=== PATIENT | male | born 1965 | race Caucasian/White ===

== ENCOUNTER 2018-12-10 08:58 | Outpatient (CLI) | payer MEDICARE, SELFPAY ==
[2018-12-10 11:18] LABS: Hemoglobin A1C 6.6 % (4.5-6.2)
[2018-12-10 12:24] LABS: ALT 137 U/L (12-78); AST 97 U/L (15-37); Albumin 3.5 g/dL (3.4-5.0); Alkaline Phosphatase 126 U/L (46-116); Anion Gap 10.1 mmol/L (3-11); BUN 15 mg/dL (7-18); Bilirubin, Total 0.7 mg/dL (0.2-1.0); CO2 28.9 mmol/L (21.0-32.0); CREATININE 0.93 mg/dL (0.70-1.30); Calcium 9.5 mg/dL (8.5-10.1); Chloride 99 mmol/L (98-107); GGT 161 U/L (15-85); Glucose 128 mg/dL (70-100); Potassium 4.6 mmol/L (3.5-5.1); Sodium 138 mmol/L (136-145); Total Protein 8.1 g/dL (6.4-8.2)
== END 2018-12-10 09:18 ==
PROVIDERS: PCP Emergency Medicine; Visit Provider Emergency Medicine
DX: E11.9 Type 2 diabetes mellitus without complications (principal); R89.9 Unspecified abnormal finding in specimens from other organs, systems and tissues
CPT/HCPCS: 36415; 80053; 82977; 83036

== ENCOUNTER 2019-04-18 12:19 | Inpatient (IN) | payer MEDICARE, SELFPAY ==
[2019-04-18] VITALS (15 sets, daily range): BP systolic 116–144; BP diastolic 69–77; PULSE 77–128; RESP 14–25; TEMP 36.8–37.8; O2SAT 87–98
--- NOTE | 2019-04-18 12:40 | W.ED.GENAD ---
Discharge Plan Disposition Condition: Improving Discharge Details Chief Complaint: Diabetes Admit Date/Time: 04/18/19 14:55 Admit Provider: Sariah Padgett Attending Provider: Sariah Padgett Primary Care Provider: Blair Baum ED Provider: Lashaun Lezama Discharge Instructions Activity:: Activity as Tolerated Equipment/Supplies:: Blood Glucose Monitor Diet:: Carb Counting Discharge Orders Discharge Orders: Discharge Order (Routine); Ordered 04/21/19 Ordered By: Nadia Yeager Discharge Data Discharge Date/Time-TO BE ENTERED AT DEPARTURE: 04/18/19 15:07 Medical Decision Making Patient is a 53-year-old male presents with chief complaint of polyuria and polydipsia for the past few months. He was noted to have a elevated glucose by his primary care who advised he come here for evaluation. He denies feeling acutely unwell. On exam, patient is resting comfortably. He does have a elevated pulse of 128. Reports feeling dehydrated. We will begin with IV hydration. BGL 504 at this time. Plan for hydration, laboratory evaluation. Discussed the plan with the patient was in agreement. Labs reviewed. No leukocytosis. Sodium slightly low 133. Potassium is normal. Has an anion gap of 12.5. Bicarb is normal. BUN 23. Creatinine 1.5. Is not been elevated like this historically. Glucose is 530. AST and ALT are both elevated. Troponin is less than 0.05. TSH within normal limits as is free T4. Patient does have trace ketones in his urine but does not have evidence of diabetic ketoacidosis. Discussed the case with Dr. Discussed medical management. As the patient has an acute kidney injury, I am unable to begin him on metformin. She feels admission is appropriate to begin him on insulin regimen. Discussed the plan with the patient is in agreement. Patient admitted to medical surgical unit. HPI General Mode of arrival: ambulatory. Date/Time Provider Initiated Documentation: 04/18/19 12:40. Limitations to Documentation: no limitations. Information obtained by: patient and RN notes reviewed. HPI Narrative: Patient is a 53-year-old male presenting today at the advisement of his care. He reports that he went to his primary care for evaluation of polyuria and polydipsia. He reports that he has been followed by his primary care for his blood pressure, cholesterol and weight gain. States that over the past 2 months he has been able to lose approximately 30 pounds. Reports he is done so by decreasing caloric intake. Reports that he is not difficult for him to drop by to evaluate like this and he is not surprised by this number. However, when he went to be evaluated by his primary care a glucose was checked and the patient was noted to have a blood sugar over 450. His primary care advised that he go to the emergency department for evaluation. He is not currently having any physical complaints. Reports that he is feeling quite well. Denies any visual changes. No headache. No chest pain. Short of breath. Denies any recent travel. Related Data Home Medications Medication Instructions Recorded Confirmed amlodipine 5 mg tablet 5 mg PO DAILY #90 tab-cap 03/11/19 04/18/19 lisinopril 30 mg tablet 30 mg PO DAILY #90 tab-cap 03/11/19 04/18/19 aspirin 81 mg PO DAILY #30 tab 04/19/19 omega-3 fatty acids 1,000 mg PO TID #90 cap 04/19/19 insulin glargine [Lantus Solostar 22 units SUBCUT HS #0 ml 04/21/19 U-100 Insulin] Previous Rx's Medication Instructions Recorded amlodipine 5 mg tablet 5 mg PO DAILY #90 tab-cap 03/11/19 lisinopril 30 mg tablet 30 mg PO DAILY #90 tab-cap 03/11/19 aspirin 81 mg PO DAILY #30 tab 04/19/19 omega-3 fatty acids 1,000 mg PO TID #90 cap 04/19/19 insulin glargine [Lantus Solostar 22 units SUBCUT HS #0 ml 04/21/19 U-100 Insulin] Allergies Allergy/AdvReac Type Severity Reaction Status Date / Time hydrochlorothiazide AdvReac Severe JOINT PAIN Verified 04/18/19 13:13 General Stated Complaint: Diabetes [place]: 2 Review of Systems Constitutional Constitutional: Reports as per HPI, Denies chills, Denies excessive sweating, Reports fatigue, Denies fever(s), Denies headache(s), Denies lethargy and Denies poor appetite Eyes Eyes: Denies change in vision ENT Ears, Nose, Mouth, and Throat: Denies dizziness and Denies headache(s) Cardiovascular Cardiovascular: Reports as per HPI, Denies chest pain, Denies chest pain at rest, Denies chest pain with activity, Denies claudication, Denies leg edema, Denies radiating jaw, neck or arm pain, Denies palpitations, Denies dyspnea and Denies dyspnea on exertion Respiratory Respiratory: Reports as per HPI, Denies chest congestion, Denies cough, Denies pain on inspiration, Denies pain with cough, Denies dyspnea, Denies dyspnea on exertion and Denies wheezing Gastrointestinal Gastrointestinal: Reports as per HPI, Denies abdominal pain, Denies diarrhea, Denies nausea and Denies vomiting Genitourinary Genitourinary: Reports system reviewed and no additional complaints, except as docu (Polyuria) Musculoskeletal Musculoskeletal: Reports as per HPI and Denies back pain Integumentary/Breasts Skin/Breast: Reports as per HPI and Denies rash Neurologic Neurologic: Reports as per HPI, Denies dizziness and Denies headache(s) Endocrine Endocrine: Denies excessive sweating, Reports fatigue, Reports polydipsia, Reports polyuria and Denies palpitations Allergic/Immunologic Allergic/Immunologic: Denies wheezing [facility] Medical History CAD (coronary artery disease) (Chronic) CVA (cerebral vascular accident) (Chronic) Question of mild CVA, per patient Essential hypertension (Chronic 05/26/13) Hyperlipidemia (Chronic) Insomnia (Acute) Low back pain (Chronic) right leg weakness; disability Obesity (BMI 30-39.9) (Chronic) Psoriasis (Chronic) Surgical History History of back surgery (Acute) Family History Mother Neoplasm Father Neoplasm BONE Niece Diabetes Social History Smoking/Tobacco Use Status: Former Tobacco Use Pack-years: 35 Alcohol Intake: current Alcohol Intake frequency: 3 or more drinks per day Details: 3-4 beers 3-4 times per week Substance use type: does not use Do you feel safe at home: Yes Do you feel safe in your relationship?: Yes Exam Const General: cooperative, healthy appearing, comfortable, no acute distress and well developed Nutritional Appearance: average body habitus and well nourished Orientation: alert, awake and oriented x3 HENMT Head: normal to inspection Ears: hearing grossly normal bilaterally Mouth: moist mucous membranes Chest Chest: normal inspection of the chest, normal palpation of entire chest wall and no crepitus Resp Effort & Inspection: normal respiratory effort, able to speak in complete sentences and no respiratory distress Auscultation: clear to auscultation bilaterally, no rales, no rhonchi and no wheezes Cardio Rate: regular rate Rhythm: regular rhythm Heart Sounds: S1 normal and S2 normal GI Inspection: normal to inspection, no edema and non-distended Palpation: soft, no hepatosplenomegaly, not firm, no guarding, not rigid and nontender Auscultation: normal bowel sounds Back/Spine/Pelvis Back: no CVA tenderness Thoracic/Lumbar Spine: thoracic and lumbar spine normal to inspection Skin General skin exam: no rashes or lesions noted Trauma: no lacerations or abrasions Neuro General: alert, awake and oriented x3 Cognition: normal cognition Speech: speech normal Gait: normal gait Extrem General: normal to inspection, normal capillary refill, no pedal edema, no calf tenderness and normal gait Psych Appearance: grossly normal and well kempt Mental Status: mental status grossly normal Speech and Movement: speech and movement normal Course Vital Signs Vital signs: Vital Signs Temperature 36.8 C 04/18/19 12:28 Pulse 128 H 04/18/19 12:28 Respiratory Rate 24 04/18/19 12:28 Blood Pressure 124/77 04/18/19 12:28 Pulse Oximetry 96 04/18/19 12:28 Temperature 36.8 C 04/18/19 12:28 Temperature Source Temporal Artery Scan 04/18/19 12:28 Pulse 128 H 04/18/19 12:28 Respiratory Rate 24 04/18/19 12:28 Respiratory Effort Non-Labored 04/18/19 12:30 Blood Pressure 124/77 04/18/19 12:28 Blood Pressure Position Sitting 04/18/19 12:28 Pulse Oximetry 96 04/18/19 12:28 Oxygen Delivery Method Room Air 04/18/19 12:28 Oxygen Flow Rate 0 04/18/19 12:28 Pain Level 0 04/18/19 12:28
[2019-04-18 13:05] LABS: Abs Immature Grans 0.01 k/cumm (0.0-0.09); Absolute Basophil Count 0.07 k/cumm (0.0-0.2); Absolute Eosinophil Count 0.34 k/cumm (0.0-0.7); Absolute Lymphocyte Count 1.87 k/cumm (1.2-3.4); Absolute Monocyte Count 0.59 k/cumm (0.11-0.7); Absolute Neutrophil Count 5.12 k/cumm (1.2-6.7); Basophils % 0.9; Eosinophils % 4.3; HCT 49.3 % (40.0-50.0); HGB 17.2 g/dL (13.5-17.5); Immature Grans % 0.1; Lymphocytes % 23.4; Mean Corp. HGB Concentration 34.9 g/dL (32.0-36.0); Mean Corpuscular Hemoglobin 34.6 pg (27.0-33.0); Mean Corpuscular Volume 99.2 fL (80-95); Mean Platelet Volume 11.9 fL (8.0-11.0); Monocytes % 7.4; Neutrophils % 63.9; Platelet Count 176 x1000/uL (130-400); RBC 4.97 m/cumm (4.50-6.00); RBC Distribution Width 13.2 % (11.8-14.1)
[2019-04-18 13:28] LABS: ALT 119 U/L (16-63); AST 70 U/L (15-37); Alkaline Phosphatase 244 U/L (46-116); Anion Gap 12.5 mmol/L (3-11); BUN 23 mg/dL (7-18); Bilirubin, Total 1.7 mg/dL (0.2-1.0); CO2 26.5 mmol/L (21.0-32.0); Calcium 10.4 mg/dL (8.5-10.1); Chloride 94 mmol/L (98-107); Estimated GFR 48.95 (mL/min/1.73m2); Magnesium 1.5 mg/dL (1.8-2.4); Potassium 4.4 mmol/L (3.5-5.1); Sodium 133 mmol/L (136-145); Total Protein 9.3 g/dL (6.4-8.2)
[2019-04-18 13:29] LABS: Troponin I < 0.05 ng/mL (0.00-0.06)
[2019-04-18 13:46] LABS: Bilirubin Small (Negative); Blood Negative (Negative); Clarity Clear (Clear); Glucose 500 mg/dL (Negative); Ketones Trace mg/dL (Negative); Leukocyte Esterase Negative (Negative); Nitrite Negative (Negative); Specific Gravity 1.015 (1.005-1.025); Urobilinogen 0.2 EU/dL (Up TO 0.2); pH 5.5 (5-8)
[2019-04-18 13:49] LABS: Glucose 530 mg/dL (70-100)
[2019-04-18] MEDS: Normal Saline 1,000 ML 1000 ML IV (14:13)
--- NOTE | 2019-04-18 15:05 | W.PM.HP.N ---
Date of service: 04/18/19 Time of Service: 15:06 Assessment and Plan Assessment and plan (1) Newly diagnosed diabetes: Status: Acute Assessment and plan: A1C 8.5 Because of Cr of 1.5, oral therapy is difficult. It could be considered once Cr improves. For now, will treat with basal bolus insulin and IVF. No evidence of DKA. conservation educator consulted. Patient is very eager to learn about diabetes. (2) RANDY (acute kidney injury): Status: Acute Assessment and plan: Start IVF. Check PVR's (3) Dehydration: Status: Acute Assessment and plan: IVF. (4) Alcohol abuse: Status: Chronic Assessment and plan: Start CIWA (5) Macrocytosis: Status: Acute Assessment and plan: Likely due to EtOH abuse. Check B12/folate. (6) Hypercalcemia: Status: Acute Assessment and plan: Likely due to dehydration. He does drink a lot of milk as well. Recheck in am with IVF. (7) Hypomagnesemia: Status: Acute Assessment and plan: Replete and recheck in am. (8) Transaminitis: Status: Acute Assessment and plan: Chronic, likely due to alcoholic liver disease. Follow up as outpatient. (9) CAD (coronary artery disease): Status: Chronic Assessment and plan: Per patient, he never had a cardiac cath or a stent. I will start him on baby asa. (10) Essential hypertension: Status: Chronic Assessment and plan: Hold diana-i in light of Randy. Continue norvasc. (11) Hyperlipidemia: Status: Chronic Assessment and plan: Check Fasting lipid panel (12) DVT prophylaxis: Status: Acute Assessment and plan: Lovenox. (13) Discharge planning issues: Status: Acute Assessment and plan: Full code History of Present Illness History of Present Illness Chief Complaint: Sent from PCP's office for a high blood sugar Narrative: Mr Burt is a 53 year old male with PMHx of CAD (but not history of cardiac cath/stent, when asked specifically), as well as history of hypertension, hyperlipidemia, ?old CVA, who was sent to ER from his PCP's office for high blood sugar. It was [address] Baum's office. It was 530 in the ED on chemistry, without any evidence of DKA. The patient does admit to thirst, frequent urination, feeling tired. He feels dehydrated. He states that he has been drinking lots of liquids - specifically, lots of milk (at least a half of a gallon yesterday), not realizing that milk can increase his blood sugar. He did also drink a soda. He states he has been intentionally trying to loose weight and lost 30 lbs in 3 months. He denies any dizziness, visual issues, chest pain, shortness of breath, nausea, numbness/tingling. Because of his Cr of 1.5, we were asked to take over care for the patient so that his insulin regimen could be figured out as he is not a candidate for metformin. Review of Systems Review of Systems Narrative: 12 systems reviewed. Pertinent positives and negatives are as per HPI [facility] Medical History (Updated 04/18/19 @ 19:15 by Sariah Padgett MD) CAD (coronary artery disease) (Chronic) CVA (cerebral vascular accident) (Chronic) Question of mild CVA, per patient Essential hypertension (Chronic 05/26/13) Hyperlipidemia (Chronic) Insomnia (Acute) Low back pain (Chronic) right leg weakness; disability Obesity (BMI 30-39.9) (Chronic) Psoriasis (Chronic) Surgical History (Updated 04/18/19 @ 19:07 by Sariah Padgett MD) History of back surgery (Acute) Family History (Updated 04/18/19 @ 19:08 by Sariah Padgett MD) Mother Neoplasm Father Neoplasm BONE Niece Diabetes Social History (Updated 04/18/19 @ 19:09 by Sariah Padgett MD) Smoking/Tobacco Use Status: Former Tobacco Use Pack-years: 35 Alcohol Intake: current Alcohol Intake frequency: 3 or more drinks per day Details: 3-4 beers 3-4 times per week Substance use type: does not use Do you feel safe at home: Yes Do you feel safe in your relationship?: Yes Meds Home Medications and Allergies Home Medications Medication Instructions Recorded Confirmed Type amlodipine 5 mg tablet 5 mg PO DAILY #90 tab-cap 03/11/19 04/18/19 Rx lisinopril 30 mg tablet 30 mg PO DAILY #90 tab-cap 03/11/19 04/18/19 Rx Allergies Allergy/AdvReac Type Severity Reaction Status Date / Time hydrochlorothiazide AdvReac Severe JOINT PAIN Verified 04/18/19 13:13 Exam Narrative Exam Narrative: General: Very pleasant, talkative middle-aged male, appears dehydrated Neurological: A&Ox3, no focal deficits Psychiatric: appropriate speech pattern/content Skin: psoriatic-like plaques on LLE HEENT: Atraumatic, normocephalic, EOMI, dry MM, white film over tongue c/w nystatin, clear oropharynx, edentuous, large neck diameter, no submandibular or cervical lypmhadenopathy, no goiter or JVD Cardiovascular: RRR, no m/r/g Lungs: CTAB Gastrointestinal: abdomen soft, obese, nontender Genitourinary: deferred Extremities: no e/c/c BLE's, 2+ pedal pulses B Results Labs Result diagrams: 04/18/19 12:50 04/18/19 12:50 Labs: Laboratory Results - last 24 hr 04/18/19 04/18/19 04/18/19 12:50 12:50 12:57 WBC 8.00 RBC 4.97 Hgb 17.2 Hct 49.3 MCV 99.2 H MCH 34.6 H MCHC 34.9 RDW 13.2 Plt Count 176 MPV 11.9 H Immature Gran % 0.1 Neutrophils % 63.9 Lymphocytes % 23.4 Monocytes % 7.4 Eosinophils % 4.3 Basophils % 0.9 Absolute Neutrophils 5.12 Absolute Lymphocytes 1.87 Absolute Monocytes 0.59 Absolute Eosinophils 0.34 Absolute Basophils 0.07 Sodium 133 L Potassium 4.4 Chloride 94 L Carbon Dioxide 26.5 Anion Gap 12.5 H BUN 23 H Creatinine 1.50 H Estimated GFR/1.73 m2 48.95 Glucose 530 H* Calcium 10.4 H Magnesium 1.5 L Total Bilirubin 1.7 H AST 70 H ALT 119 H Alkaline Phosphatase 244 H Troponin I < 0.05 Total Protein 9.3 H Albumin 4.0 Urine Color Yellow Urine Clarity Clear Urine pH 5.5 Ur Specific [place] 1.015 Urine Protein Negative Urine Ketones Trace H Urine Blood Negative Urine Nitrite Negative Urine Bilirubin Small H Urine Urobilinogen 0.2 Ur Leukocyte Esterase Negative Urine Glucose 500 H Last Vital Signs Temp 36.8 C 04/18/19 12:28 Pulse 128 H 04/18/19 12:28 Resp 17 04/18/19 14:00 BP 124/77 04/18/19 12:28 Pulse Ox 91 L 04/18/19 14:00
[2019-04-18 15:13] LABS: BE (Venous) 5.9 mmol/L (-3-3); HCO3 (Venous) 31 mmol/L (22-28); O2 Sat (Venous) 47 % (70-80); TCO2 (Venous) 27 mmol/L (22-29); pCO2 (Venous) 54 mm/Hg (34-47); pH (Venous) 7.37 (7.32-7.43); pO2 (Venous) 28 mm/Hg (28-44)
[2019-04-18 15:49] LABS: FREE T4 1.02 ng/dL (0.76-1.46); TSH 2.25 uIU/mL (0.36-3.74)
[2019-04-18 15:50] LABS: Hemoglobin A1C 8.5 % (4.5-6.2)
[2019-04-18] MEDS: Normal Saline 1,000 ML 150 ML IV ×2 (16:13→22:33)
[2019-04-18] MEDS: MAGNESIUM SULFATE 4 GM/100 ML BAG IVPB (17:31)
[2019-04-18] MEDS: Normal Saline 500 ML IV (17:35)
[2019-04-18] MEDS: Enoxaparin 40 MG/0.4 ML SYR SC (17:35)
[2019-04-18] MEDS: Insulin Aspart 300 UNITS/3 ML PEN SC ×2 (17:55→21:51)
[2019-04-18] MEDS: Insulin Glargine 300 UNITS/3 ML PEN 10 UNITS SC (21:52)
[2019-04-18] MEDS: Nystatin 500000 UNITS/5 ML SUSP 5ML CUP PO (21:56)
[2019-04-19] VITALS (7 sets, daily range): BP systolic 120–153; BP diastolic 65–86; PULSE 67–85; RESP 16–18; TEMP 36.2–36.8; O2SAT 94–98
[2019-04-19] MEDS: Normal Saline 1,000 ML 150 ML IV (05:00)
[2019-04-19] MEDS: Nystatin 500000 UNITS/5 ML SUSP 5ML CUP PO ×4 (05:00→21:22)
[2019-04-19 07:09] LABS: HCT 43.1 % (40.0-50.0); Mean Corp. HGB Concentration 34.8 g/dL (32.0-36.0); Mean Corpuscular Hemoglobin 35.3 pg (27.0-33.0); Mean Corpuscular Volume 101.4 fL (80-95); Mean Platelet Volume 11.7 fL (8.0-11.0); Platelet Count 135 x1000/uL (130-400); RBC 4.25 m/cumm (4.50-6.00); RBC Distribution Width 13.7 % (11.8-14.1); White Blood Cell Count 6.68 k/cumm (4.4-10.8)
[2019-04-19 07:44] LABS: Folate 13.1 ng/mL (8.6-20.0)
[2019-04-19 07:54] LABS: ALT 85 U/L (16-63); AST 65 U/L (15-37); Alkaline Phosphatase 127 U/L (46-116); Anion Gap 10.7 mmol/L (3-11); BUN 20 mg/dL (7-18); Bilirubin, Total 1.2 mg/dL (0.2-1.0); CO2 26.3 mmol/L (21.0-32.0); CREATININE 1.04 mg/dL (0.70-1.30); Calcium 8.5 mg/dL (8.5-10.1); Calculated LDL 50 mg/dL; Chloride 101 mmol/L (98-107); Cholesterol 124 mg/dL (50-200); Glucose 347 mg/dL (70-100); HDL Cholesterol 18 mg/dL (40-60); Magnesium 1.6 mg/dL (1.8-2.4); Potassium 4.2 mmol/L (3.5-5.1); Sodium 138 mmol/L (136-145); Total Protein 7.1 g/dL (6.4-8.2); Triglyceride 280 mg/dL (30-150); Vitamin B12 1936 pg/mL (193-986)
[2019-04-19 08:04] LABS: Bilirubin, Direct 0.24 mg/dL (0.00-0.20)
[2019-04-19] MEDS: Multivitamin TAB 1 TAB PO (08:13)
[2019-04-19] MEDS: amLODIPine 5 MG TAB PO (08:13)
[2019-04-19] MEDS: Aspirin E.C. 81 MG TABEC PO (08:13)
[2019-04-19] MEDS: Thiamine 100 MG TAB PO (08:13)
[2019-04-19] MEDS: Insulin Aspart 300 UNITS/3 ML PEN SC ×4 (08:14→21:23)
[2019-04-19] MEDS: Folic Acid 1 MG TAB PO (08:14)
[2019-04-19] MEDS: MAGNESIUM SULFATE 2 GM/50 ML BAG IVPB (09:11)
--- NOTE | 2019-04-19 09:54 | PT.INIE ---
Date of service: 04/19/19 Time of Service: 09:45 PT Notes Inpatient Physical Therapy Evaluation Date: 04/19/2019 Referring Doctor: Sariah Padgett MD PT Orders: PT CONSULT: Limited ability Precautions: None Patient Profile/Admitting Diagnosis: Patient admitted to inpatient care, from PCPs office, for management of high blood sugar. PMHX: Medical History (Updated 04/18/19 @ 19:15 by Sariah Padgett MD) CAD (coronary artery disease) (Chronic) CVA (cerebral vascular accident) (Chronic) Question of mild CVA, per patient Essential hypertension (Chronic 05/26/13) Hyperlipidemia (Chronic) Insomnia (Acute) Low back pain (Chronic) right leg weakness; disability Obesity (BMI 30-39.9) (Chronic) Psoriasis (Chronic) Surgical History (Updated 04/18/19 @ 19:07 by Sariah Padgett MD) History of back surgery (Acute) Social History/Home Situation: Lives independently in a private home Current Functional Limitations: None Equipment Owned/DME: None Subjective: Guy reporting that he suffered from continued feeling of thirst. He was encouraged by family to follow-up with his PCP, discovering his remarkable high blood sugar. Otherwise, he feels fine, no functional limitations or deficits. Denies any pain. He does have a history of chronic low back pain, with history of surgery, which she suffers episodes with once in a while if he lifts something too heavy. Objective: [] General Observation: Seated upright in chair, IV right arm, appears comfortable Mental Status: Alert and oriented x3, in no distress, cognitively intact Pain: 0/10 Vital Signs: 132/79 BP, 86 HR ROM: Right Upper Extremity: WNL Left Upper Extremity: WNL Right Lower Extremity: WNL Left Lower Extremity: WNL Strength: Right Upper Extremity: Grossly 5/5 throughout Left Upper Extremity: Grossly 5/5 throughout Right Lower Extremity: Grossly 5/5 throughout Left Lower Extremity: Grossly 5/5 throughout Sensation: Intact throughout Bed Mobility/Transfers: Independent with all sit to stand, stand to sit, ambulation, and transfer activities. Safe with all mobility. Gait: WNL Balance: [] Static Sitting: Excellent Dynamic Sitting: Excellent Static Standing: Excellent Dynamic Standing: Excellent Special Tests: Mobility Limitations Standardized Measure [facility] 6 clicks Basic Mobility Inpatient Short Form: CMS Score: 0% disability Informed Consent/Education: Patient instructed in purpose of PT consult and plan of care. Assessment: Patient is a 53 year old male referred to physical therapy services with the diagnosis of high blood sugar, and referred for PT for limited ability. Patient presents with no impairments or functional limitations, has full functional mobility with good safety and steadiness. He is not appropriate for PT care. Patient is assessed as a x Low 87549 Moderate [id number] High 68396 complexity based on the following: History: See comorbidities Examination: No impairments or functional limitations Presentation: Stable Decision Making: Easy, low complexity, 0% disability with [facility] assessment Plan of Care/Treatment Plan: Discharged from PT care DISCHARGE RECOMMENDATIONS: Home TREATMENT CODE/TIME: 15 min, [id number]
--- NOTE | 2019-04-19 14:17 | W.PM.DS.N ---
DS: Diagnosis Discharge Diagnosis (1) Newly diagnosed diabetes: Start date: 04/19/19 Start time: 14:17 Status: Acute Asessment and Plan: Started on lantus. Will need close follow up as an outpatient with potential for additional oral glycemics. (2) IAN (acute kidney injury): Start date: 04/19/19 Start time: 14:18 Status: Acute Asessment and Plan: Improved with hydration, consider oral therapy as an outpatient with monitoring (3) Dehydration: Status: Acute (4) Alcohol abuse: Status: Chronic (5) Macrocytosis: Status: Acute (6) Hypercalcemia: Status: Acute (7) Hypomagnesemia: Status: Acute (8) Transaminitis: Status: Acute (9) CAD (coronary artery disease): Status: Chronic (10) Essential hypertension: Status: Chronic (11) Hyperlipidemia: Status: Chronic (12) DVT prophylaxis: Status: Acute (13) Discharge planning issues: Status: Acute Discharge Plan Disposition Patient Disposition: HOME Condition: Improving Discharge Details Chief Complaint: Diabetes Reason For Visit: NEW DIAGNOSIS OF DIABETES WITH HYPERGLYCEMIA ,IAN Admit Date/Time: 04/18/19 14:54 Admit Provider: Sariah Padgett Attending Provider: Sariah Padgett Primary Care Provider: Blair Baum [facility] Course: 53 y.o male with PMH of CAD, HTN, hyperlipidemia, question of old infarct; admitted to [facility] m/s after being sent from PCP office for high blood sugar. Found to have a 431 fingerstick in office with 530 on chemistry in the ED. He has endorsed increased urination, thirst and tired feelings. He was found to have IAN by labs, therefore lantus was started with SSI and oral therapy was held. Today his fingersticks have been in 300's with recent one at 340. Abrupt onset of insulin need by a patient who has been followed as an outpatient will need titration with close observation and potential addition for oral therapy. Triglycerides elevated, started on omega 3 fatty acid TID. He has had insulin education, feels comfortable injecting himself and checking insulin levels. He will need to check insulin daily and record numbers to bring to his primary. Discussed potential for hyper and hypoglycemia. Will follow up with [facility] as an outpatient. ADA dietary plan with DASH diet given to patient. He denies CP, SOB, N/V/D. Follow up with PCP on Sunday. Home Meds and New Rx's Prescriptions: New aspirin 81 mg Tablet,Delayed Release (Dr/Ec) 81 mg PO DAILY Qty: 30 RF: 0 Lantus Solostar U-100 Insulin 100 unit/mL (3 mL) Insulin Pen 13 units subcut HS Qty: 100 RF: 0 omega-3 fatty acids 1,000 mg capsule 1,000 mg PO TID Qty: 90 RF: 0 Continued lisinopril 30 mg tablet 30 mg PO DAILY Qty: 90 RF: 3 amlodipine 5 mg tablet 5 mg PO DAILY Qty: 90 RF: 4 Discharge Instructions Instructions: How to Check Your Blood Sugar (GEN), Diabetic Ketoacidosis (GEN), Foot Care for People with Diabetes (GEN), Diabetic Hypoglycemia (GEN), Diabetes Mellitus Type 2 in Adults (GEN), Meal Planning with Diabetes Exchanges (GEN), Managing Diabetes During Sick Days (GEN), DASH Eating Plan (DC), DASH Eating Plan (GEN), Hemoglobin A1c (GEN) Additional Instructions: Take lantus at night. Check your blood sugar daily in the morning. Bring your numbers to your doctor on Sunday. Follow a modified diet plan using both the DASH diet and [place] [employer] Plan. If you have increased thirst or have dizziness, diaphoresis, lethargy not feeling well. CHECK your blood sugar. Blood sugar 500 or greater go to the emergency department or 70 and lower. If you have a blood sugar under 70 drink a glass of milk, eat some crackers and recheck in 30 mins. Target blood sugar is 85-140. Seek Medical Treatment if you have Chest pain, Shortness of Breath, N/V/D. Stand Alone Forms: Nursing Discharge Form Referrals: Blair Baum DO [Primary Care Provider] - (follow up with PCP on Sunday) Activity:: Activity as Tolerated Equipment/Supplies:: Blood Glucose Monitor Diet:: Carb Counting DS: Data Vitals/I&O Vitals and I&O: Vital Signs Temperature 36.7 C 04/19/19 11:04 Temperature Source Tympanic 04/19/19 11:04 Pulse 83 04/19/19 11:04 Pulse Rhythm Regular 04/19/19 08:49 Pulse 94 H 04/18/19 15:00 Respiratory Rate 18 04/19/19 11:04 Respiratory Effort Non-Labored 04/19/19 08:49 Respiratory Depth Normal 04/19/19 08:49 Respiratory Pattern Normal 04/19/19 08:49 Blood Pressure 153/85 H 04/19/19 11:04 Blood Pressure Position Sitting 04/18/19 12:28 Pulse Oximetry 97 04/19/19 11:04 Oxygen Delivery Method Room Air 04/19/19 11:04 Oxygen Flow Rate 0 04/19/19 11:04 Pain Level 0 04/19/19 11:04 Intake & Output 04/18/19 04/19/19 04/19/19 23:59 11:59 23:59 Intake Total 1350 / 1350 1857.5 / 3097.5 1240 / 3097.5 Output Total 871 / 1371 600 / 1100 500 / 1100 Balance 479 / -21 1257.5 / 1996.5 740 / 1997.5 Weight 102.058 kg 105.5 kg Intake: IV 950 / 950 967.5 / 1966.5 1000 / 1966.5 Oral 400 / 400 890 / 1130 240 / 1130 Output: Urine 871 / 1371 600 / 1100 500 / 1100 Other: Urine Color Yellow Yellow Yellow Urine Appearance Clear Clear Clear Urine Odor Normal Comment voiding in toilet independantly Stool Size Small Moderate Stool Characteristics Soft Soft Formed Brown Voiding Methods Toilet Toilet Data Completed and Pending Labs on day of discharge: Labs from last 24 hours 04/19/19 04/19/19 04/19/19 06:15 06:15 06:15 WBC 6.68 RBC 4.25 L Hgb 15.0 D Hct 43.1 MCV 101.4 H MCH 35.3 H MCHC 34.8 RDW 13.7 Plt Count 135 MPV 11.7 H VBG pH VBG pCO2 VBG pO2 VBG HCO3 VBG Total CO2 VBG O2 Saturation VBG Base Excess Sodium 138 Potassium 4.2 Chloride 101 Carbon Dioxide 26.3 Anion Gap 10.7 BUN 20 H Creatinine 1.04 Estimated GFR/1.73 m2 >= 60.00 Glucose 347 H D Hemoglobin A1c Calcium 8.5 Magnesium 1.6 L Total Bilirubin 1.2 H Conjugated Bilirubin 0.24 H AST 65 H ALT 85 H Alkaline Phosphatase 127 H Total Protein 7.1 Albumin 3.0 L Triglycerides 280 H Total Cholesterol 124 LDL Cholesterol, Calc 50 HDL Cholesterol 18 L Vitamin B12 1936 H Folate 13.1 TSH Free T4 04/18/19 04/18/19 04/18/19 15:07 12:50 12:50 WBC RBC Hgb Hct MCV MCH MCHC RDW Plt Count MPV VBG pH 7.37 VBG pCO2 54 H VBG pO2 28 VBG HCO3 31 H VBG Total CO2 27 VBG O2 Saturation 47 L VBG Base Excess 5.9 H Sodium Potassium Chloride Carbon Dioxide Anion Gap BUN Creatinine Estimated GFR/1.73 m2 Glucose Hemoglobin A1c 8.5 H Calcium Magnesium Total Bilirubin Conjugated Bilirubin AST ALT Alkaline Phosphatase Total Protein Albumin Triglycerides Total Cholesterol LDL Cholesterol, Calc HDL Cholesterol Vitamin B12 Folate TSH 2.25 Free T4 1.02 PFSH Medical History CAD (coronary artery disease) (Chronic) CVA (cerebral vascular accident) (Chronic) Question of mild CVA, per patient Essential hypertension (Chronic 05/26/13) Hyperlipidemia (Chronic) Insomnia (Acute) Low back pain (Chronic) right leg weakness; disability Obesity (BMI 30-39.9) (Chronic) Psoriasis (Chronic) Surgical History History of back surgery (Acute) Family History Mother Neoplasm Father Neoplasm BONE Niece Diabetes Social History Smoking/Tobacco Use Status: Former Tobacco Use Pack-years: 35 Alcohol Intake: current Alcohol Intake frequency: 3 or more drinks per day Details: 3-4 beers 3-4 times per week Substance use type: does not use Do you feel safe at home: Yes Do you feel safe in your relationship?: Yes
--- NOTE | 2019-04-19 15:08 | W.PM.PROGNOT ---
Date of Service Date of service: 04/19/19 Time of Service: 15:08 Assessment and Plan Assessment and plan (1) Newly diagnosed diabetes: Start date: 04/19/19 Start time: 15:18 Status: Acute Assessment and plan: A1c 8.5. Abrupt onset of insulin need. Oral therapy held due to IAN. Started on Lantus 12 units with SSI, patient fingersticks in 300's. No evidence of DKA. peer educator consulted. Continue to follow fingersticks. (2) IAN (acute kidney injury): Start date: 04/19/19 Start time: 15:21 Status: Acute Assessment and plan: Improved. Creatinine 1.04 BUN 20. Resume lisinopril and monitor. (3) Dehydration: Start date: 04/19/19 Start time: 15:23 Status: Acute Assessment and plan: Resolved. (4) Alcohol abuse: Start date: 04/19/19 Start time: 15:25 Status: Chronic Assessment and plan: Has not had a drink since last Sunday. Agrees to stopping alcohol (5) Macrocytosis: Start date: 04/19/19 Start time: 15:26 Status: Acute Assessment and plan: Vitamin B 12 1936, [id number] (6) Hypomagnesemia: Start date: 04/19/19 Start time: 15:27 Status: Acute Assessment and plan: 1.6 mag level today. Replete and monitor (7) Essential hypertension: Start date: 04/19/19 Start time: 15:27 Status: Chronic Assessment and plan: Lisinopril resumed with IAN resolved. Monitor. (8) DVT prophylaxis: Start date: 04/19/19 Start time: 15:27 Status: Acute Assessment and plan: Enoxaparin (9) Discharge planning issues: Start date: 04/19/19 Start time: 15:27 Status: Acute Assessment and plan: Patient was potential discharge today, however does not have financial ability to obtain glucometer, strips and insulin. Would benefit from nutrition consult and continue teaching; with glucose monitoring. Subjective Subjective Patient reports: feels better Interval history since last seen: Feeling better today. BGL is 300's. IAN improved. Continue to monitor. Patient was potential discharge today, however does not have financial ability to obtain glucometer, strips and insulin. Would benefit from nutrition consult and continue teaching; with glucose monitoring. Exam Narrative Exam Narrative: General: Very pleasant, talkative middle-aged male Neurological: A&Ox3, no focal deficits Psychiatric: appropriate speech pattern/content Skin: psoriatic-like plaques on Bilateral extremities, worse on Left HEENT: Atraumatic, normocephalic, EOMI, dry MM, clear oropharynx, edentuous, large neck diameter, no submandibular or cervical lypmhadenopathy, no goiter or JVD Cardiovascular: RRR, no m/r/g Lungs: CTAB Gastrointestinal: abdomen soft, obese, nontender Extremities: no e/c/c BLE's, 2+ pedal pulses B Objective Objective Clinical Data: Abnormal lab results 04/18/19 04/18/19 04/19/19 Range/Units 12:50 15:07 06:15 RBC (4.50-6.00) m/cumm MCV (80-95) fL MCH (27.0-33.0) pg MPV (8.0-11.0) fL VBG pCO2 54 H (34-47) mm/Hg VBG HCO3 31 H (22-28) mmol/L VBG O2 Saturation 47 L (70-80) % VBG Base Excess 5.9 H (-3-3) mmol/L BUN 20 H (7-18) mg/dL Glucose 347 H D (70-100) mg/dL Hemoglobin A1c 8.5 H (4.5-6.2) % Magnesium 1.6 L (1.8-2.4) mg/dL Total Bilirubin 1.2 H (0.2-1.0) mg/dL Conjugated Bilirubin 0.24 H (0.00-0.20) mg/dL AST 65 H (15-37) U/L ALT 85 H (16-63) U/L Alkaline Phosphatase 127 H (46-116) U/L Albumin 3.0 L (3.4-5.0) g/dL Triglycerides 280 H (30-150) mg/dL HDL Cholesterol 18 L (40-60) mg/dL Vitamin B12 1936 H (193-986) pg/mL 04/19/19 Range/Units 06:15 RBC 4.25 L (4.50-6.00) m/cumm MCV 101.4 H (80-95) fL MCH 35.3 H (27.0-33.0) pg MPV 11.7 H (8.0-11.0) fL VBG pCO2 (34-47) mm/Hg VBG HCO3 (22-28) mmol/L VBG O2 Saturation (70-80) % VBG Base Excess (-3-3) mmol/L BUN (7-18) mg/dL Glucose (70-100) mg/dL Hemoglobin A1c (4.5-6.2) % Magnesium (1.8-2.4) mg/dL Total Bilirubin (0.2-1.0) mg/dL Conjugated Bilirubin (0.00-0.20) mg/dL AST (15-37) U/L ALT (16-63) U/L Alkaline Phosphatase (46-116) U/L Albumin (3.4-5.0) g/dL Triglycerides (30-150) mg/dL HDL Cholesterol (40-60) mg/dL Vitamin B12 (193-986) pg/mL Vital Signs Temperature 36.7 C 04/19/19 11:04 Temperature Source Tympanic 04/19/19 11:04 Pulse 83 04/19/19 11:04 Pulse Rhythm Regular 04/19/19 08:49 Pulse 94 H 04/18/19 15:00 Respiratory Rate 18 04/19/19 11:04 Respiratory Effort Non-Labored 04/19/19 08:49 Respiratory Depth Normal 04/19/19 08:49 Respiratory Pattern Normal 04/19/19 08:49 Blood Pressure 153/85 H 04/19/19 11:04 Blood Pressure Position Sitting 04/18/19 12:28 Pulse Oximetry 97 04/19/19 11:04 Oxygen Delivery Method Room Air 04/19/19 11:04 Oxygen Flow Rate 0 04/19/19 11:04 Pain Level 0 04/19/19 11:04 Intake & Output 04/18/19 04/19/19 04/19/19 23:59 11:59 23:59 Intake Total 1350 / 1350 1857.5 / 3097.5 1240 / 3097.5 Output Total 871 / 1371 600 / 1100 500 / 1100 Balance 479 / -21 1257.5 / 1997.5 740 / 1997.5 Weight 102.058 kg 105.5 kg Intake: IV 950 / 950 967.5 / 1966.5 1000 / 1966.5 Oral 400 / 400 890 / 1130 240 / 1130 Output: Urine 871 / 1371 600 / 1100 500 / 1100 Other: Urine Color Yellow Yellow Yellow Urine Appearance Clear Clear Clear Urine Odor Normal Comment voiding in toilet independantly Stool Size Small Moderate Stool Characteristics Soft Soft Formed Brown Voiding Methods Toilet Toilet Laboratory Results WBC 6.68 k/cumm (4.4-10.8) 04/19/19 06:15 RBC 4.25 m/cumm (4.50-6.00) L 04/19/19 06:15 Hgb 15.0 g/dL (13.5-17.5) D 04/19/19 06:15 Hct 43.1 % (40.0-50.0) 04/19/19 06:15 MCV 101.4 fL (80-95) H 04/19/19 06:15 MCH 35.3 pg (27.0-33.0) H 04/19/19 06:15 MCHC 34.8 g/dL (32.0-36.0) 04/19/19 06:15 RDW 13.7 % (11.8-14.1) 04/19/19 06:15 Plt Count 135 x1000/uL (130-400) 04/19/19 06:15 MPV 11.7 fL (8.0-11.0) H 04/19/19 06:15 Immature Gran % 0.1 04/18/19 12:50 Neutrophils % 63.9 04/18/19 12:50 Lymphocytes % 23.4 04/18/19 12:50 Monocytes % 7.4 04/18/19 12:50 Eosinophils % 4.3 04/18/19 12:50 Basophils % 0.9 04/18/19 12:50 Absolute Neutrophils 5.12 k/cumm (1.2-6.7) 04/18/19 12:50 Absolute Lymphocytes 1.87 k/cumm (1.2-3.4) 04/18/19 12:50 Absolute Monocytes 0.59 k/cumm (0.11-0.7) 04/18/19 12:50 Absolute Eosinophils 0.34 k/cumm (0.0-0.7) 04/18/19 12:50 Absolute Basophils 0.07 k/cumm (0.0-0.2) 04/18/19 12:50 VBG pH 7.37 (7.32-7.43) 04/18/19 15:07 VBG pCO2 54 mm/Hg (34-47) H 04/18/19 15:07 VBG pO2 28 mm/Hg (28-44) 04/18/19 15:07 VBG HCO3 31 mmol/L (22-28) H 04/18/19 15:07 VBG Total CO2 27 mmol/L (22-29) 04/18/19 15:07 VBG O2 Saturation 47 % (70-80) L 04/18/19 15:07 VBG Base Excess 5.9 mmol/L (-3-3) H 04/18/19 15:07 Sodium 138 mmol/L (136-145) 04/19/19 06:15 Potassium 4.2 mmol/L (3.5-5.1) 04/19/19 06:15 Chloride 101 mmol/L (98-107) 04/19/19 06:15 Carbon Dioxide 26.3 mmol/L (21.0-32.0) 04/19/19 06:15 Anion Gap 10.7 mmol/L (3-11) 04/19/19 06:15 BUN 20 mg/dL (7-18) H 04/19/19 06:15 Creatinine 1.04 mg/dL (0.70-1.30) 04/19/19 06:15 Estimated GFR/1.73 m2 >= 60.00 (mL/min/1.73m2) 04/19/19 06:15 Glucose 347 mg/dL (70-100) H D 04/19/19 06:15 Hemoglobin A1c 8.5 % (4.5-6.2) H 04/18/19 12:50 Calcium 8.5 mg/dL (8.5-10.1) 04/19/19 06:15 Magnesium 1.6 mg/dL (1.8-2.4) L 04/19/19 06:15 Total Bilirubin 1.2 mg/dL (0.2-1.0) H 04/19/19 06:15 Conjugated Bilirubin 0.24 mg/dL (0.00-0.20) H 04/19/19 06:15 AST 65 U/L (15-37) H 04/19/19 06:15 ALT 85 U/L (16-63) H 04/19/19 06:15 Alkaline Phosphatase 127 U/L (46-116) H 04/19/19 06:15 Troponin I < 0.05 ng/mL (0.00-0.06) 04/18/19 12:50 Total Protein 7.1 g/dL (6.4-8.2) 04/19/19 06:15 Albumin 3.0 g/dL (3.4-5.0) L 04/19/19 06:15 Triglycerides 280 mg/dL (30-150) H 04/19/19 06:15 Total Cholesterol 124 mg/dL (50-200) 04/19/19 06:15 LDL Cholesterol, Calc 50 mg/dL 04/19/19 06:15 HDL Cholesterol 18 mg/dL (40-60) L 04/19/19 06:15 Vitamin B12 1936 pg/mL (193-986) H 04/19/19 06:15 Folate 13.1 ng/mL (8.6-20.0) 04/19/19 06:15 TSH 2.25 uIU/mL (0.36-3.74) 04/18/19 12:50 Free T4 1.02 ng/dL (0.76-1.46) 04/18/19 12:50 Urine Color Yellow (Yellow) 04/18/19 12:57 Urine Clarity Clear (Clear) 04/18/19 12:57 Urine pH 5.5 (5-8) 04/18/19 12:57 Ur Specific [place] 1.015 (1.005-1.025) 04/18/19 12:57 Urine Protein Negative mg/dL (Negative) 04/18/19 12:57 Urine Ketones Trace mg/dL (Negative) H 04/18/19 12:57 Urine Blood Negative (Negative) 04/18/19 12:57 Urine Nitrite Negative (Negative) 04/18/19 12:57 Urine Bilirubin Small (Negative) H 04/18/19 12:57 Urine Urobilinogen 0.2 EU/dL (Up TO 0.2) 04/18/19 12:57 Ur Leukocyte Esterase Negative (Negative) 04/18/19 12:57 Urine Glucose 500 mg/dL (Negative) H 04/18/19 12:57
[2019-04-19] MEDS: Enoxaparin 40 MG/0.4 ML SYR SC (17:02)
--- NOTE | 2019-04-19 17:03 | NUR.NOTE ---
Pt was educated on insulin administration and was able to demonstrate giving himself insulin for lunch and dinner. Nursing Note:
--- NOTE | 2019-04-19 17:08 | INITIAL_ITS ---
- If Service Date Differs Date of service: 04/19/19 Time of Service: 17:08 Care Management Initial Assess REASON FOR HOSPITALIZATION:: Newly diagnosed Diabetes PAST MEDICAL HISTORY/PAST SURGICAL HISTORY:: Medical History : CAD (coronary artery disease) (Chronic). CVA (cerebral vascular accident) (Chronic). Question of mild CVA, per patient. Essential hypertension (Chronic 05/26/13). Hyperlipidemia (Chronic). Insomnia (Acute). Low back pain (Chronic). right leg weakness; disability. Obesity (BMI 30-39.9) (Chronic). Psoriasis (Chronic). Surgical History: History of back surgery (Acute) PREVIOUS FUNCTIONAL STATUS/SOCIAL/FAMILY SUPPORTS:: Kristi lives alone in a single family, 2 story home in [place], [place] He recently ( about 10 weeks ago) returned to [place] after living in [place] for a while. He has never been and has no children. Kristi states he has no family in the area nor does he have any friends. He identifies his [id number] Tiesha Burt in [facility] as his main support. He does have a brother who travels often and Kristi does not generally know where he is. Kristi has been disabled for many years due to a back injury. He remains independent with all ADLs and continues to drive. CURRENT FUNCTIONAL STATUS:: Kristi was sitting up in bed when CM met with him. He was open and friendly and eager to talk about his newly diagnosed diabetes and had many questions. A consult with the clinical unit educator has been ordered, but due to the weekend, it may need to wait until Sunday. His nurse Arash has been working with him and teaching him about his disease.kristi stated that he found this very helpful. ADVANCE DIRECTIVES:: none on file at [facility] but states he has them in [facility] Has patient been provided with information about the portal?: No Did the patient sign up for the portal?: No CODE STATUS:: Full Code INSURANCE COVERAGE / FINANCIAL ISSUES:: Medicare CURRENT HOME/COMMUNITY SERVICES/EQUIPMENT:: none currently PRIMARY CARE PHYSICIAN:: Blair Baum POTENTIAL DISCHARGE NEEDS:: Diabetes education, glucometer, test strips, lancets, insurance that covers medications PATIENT/FAMILY EDUCATION NEEDS:: Discharge instructions, Diabetes education, limitations, follow up plan, Ask Me Three. ANTICIPATED BARRIERS TO DISCHARGE:: Kristi only has Medicare Parts A and B for insurance. He has no drug coverage and cannot afford his insulin TRANSPORTATION:: via private vehicle by self when ready PLAN:: Kristi is hospitalized to get his newly diagnosed diabetes under control and to become educated about his disease and needs for care. Barriers to discharge include a lack of funding/insurance to pay for the insulin. CM will continue to support patient and discharge needs.
[2019-04-19] MEDS: Insulin Glargine 300 UNITS/3 ML PEN 13 UNITS SC (21:27)
[2019-04-20 04:27] VITALS: BP 153/90; PULSE 77; RESP 18; TEMP 36.1; O2SAT 99
[2019-04-20] MEDS: Nystatin 500000 UNITS/5 ML SUSP 5ML CUP PO ×5 (06:00→21:36)
[2019-04-20 07:45] VITALS: BP 150/79; PULSE 75; RESP 20; TEMP 36.5; O2SAT 96
[2019-04-20] MEDS: Insulin Aspart 300 UNITS/3 ML PEN SC ×4 (08:06→21:34)
[2019-04-20] MEDS: Lisinopril 10 MG TAB 30 MG PO (08:08)
[2019-04-20] MEDS: Folic Acid 1 MG TAB PO (08:08)
[2019-04-20] MEDS: amLODIPine 5 MG TAB PO (08:08)
[2019-04-20] MEDS: Thiamine 100 MG TAB PO (08:08)
[2019-04-20] MEDS: Aspirin E.C. 81 MG TABEC PO (08:09)
[2019-04-20] MEDS: Multivitamin TAB 1 TAB PO (08:09)
--- NOTE | 2019-04-20 10:16 | CMPROGNOTE_ITS ---
- If Service Date Differs Date of service: 04/20/19 Time of Service: 10:16 Care Management Progress Note S/O: Epifanio was sitting up in a chair when CM came to see him. He stated he is looking forward to tomorrow when he can receive more formalized diabetes education and meet with [facility] to help resolve his financial issues. He stated that he talked to his sister-in- law in [facility] who is also his DPOA at length and updated her on recent events. A: Epifanio is a 53 year old man admitted to [facility] on 04/18/19 with new onset diabetes P:Epifanio is hospitalized to get his newly diagnosed diabetes under control and to become educated about his disease and needs for care. Barriers to discharge include a lack of funding/insurance to pay for the insulin. CM will continue to support patient and discharge needs.
[2019-04-20 11:57] VITALS: BP 121/74; PULSE 72; RESP 19; TEMP 36.6; O2SAT 94
--- NOTE | 2019-04-20 12:13 | W.PM.PROGNOT ---
Date of Service Date of service: 04/20/19 Time of Service: 12:14 Assessment and Plan Assessment and plan (1) Newly diagnosed diabetes: Status: Acute Assessment and plan: blood sugars 258-323 requiring 8-10 units of humalog. H1C 8.5, will increase lantus to 20 units daily, continue blood sugar checks and coverage ac/hs, diabetic diet, and diabetes education. will need referral for outpatient education (2) Essential hypertension: Status: Chronic Assessment and plan: blood pressures are stable with SBP 120-130's. will continue lisinopril and amlodipine and monitor, adjust medications as needed. (3) Alcohol abuse: Status: Chronic Assessment and plan: no signs of withdrawal, patient is motivated to abstain. continue MVI and thiamine daily. continue CIWA (4) Transaminitis: Status: Acute Assessment and plan: improved now abstaining from alcohol. continue to avoid hepatotoxic drugs (5) DVT prophylaxis: Status: Acute Assessment and plan: continue enoxaparin (6) IAN (acute kidney injury): Status: Acute Assessment and plan: resolved with hydration. continue lisinopril in diabetes mellitus. (7) Discharge planning issues: Status: Acute Assessment and plan: home Sunday if blood sugars stable and able to obtain supplies/medications. will change to inpatient status while adjusting insulin and awaiting a safe discharge plan. Subjective Subjective Patient reports: no new complaints, tolerating a regular diet (diabetic diet) and voiding w/o difficulty Exam Const General: cooperative, healthy appearing (older than stated age), comfortable and no acute distress Nutritional Appearance: average body habitus Orientation: alert, awake and oriented x3 Limitations: altered mental status HENMT Head: normal to inspection and atraumatic Mouth: moist mucous membranes abnormal Resp Effort & Inspection: normal respiratory effort Auscultation: clear to auscultation bilaterally Cardio Rate: regular rate Rhythm: regular rhythm GI Inspection: normal to inspection and distended Palpation: soft Auscultation: normal bowel sounds Skin General skin exam: no rashes or lesions noted Neuro General: alert, awake and oriented x3 Cognition: normal cognition Speech: speech normal Extrem General: normal to inspection and full ROM Psych Speech and Movement: speech and movement normal Mood: congruent mood Affect: normal affect Attitude: cooperative Thought Process: normal Thought Content: normal Objective Objective Clinical Data: Vital Signs Temperature 36.6 C 04/20/19 11:57 Temperature Source Tympanic 04/20/19 11:57 Pulse 72 04/20/19 11:57 Pulse Rhythm Regular 04/20/19 09:17 Pulse 94 H 04/18/19 15:00 Respiratory Rate 19 04/20/19 11:57 Respiratory Effort Non-Labored 04/20/19 09:17 Respiratory Depth Normal 04/20/19 09:17 Respiratory Pattern Normal 04/20/19 09:17 Blood Pressure 121/74 04/20/19 11:57 Blood Pressure Position Sitting 04/18/19 12:28 Pulse Oximetry 94 L 04/20/19 11:57 Oxygen Delivery Method Room Air 04/20/19 11:57 Oxygen Flow Rate 0 04/20/19 11:57 Pain Level 0 04/20/19 11:57 Intake & Output 04/19/19 04/20/19 04/20/19 23:59 11:59 23:59 Intake Total 1780 / 3637.5 1000 / 1000 Output Total 2100 / 2700 1500 / 1500 Balance -320 / 937.5 -500 / -500 Weight 105.9 kg Intake: IV 1000 / 1967.5 Oral 780 / 1670 1000 / 1000 Output: Urine 2100 / 2700 1500 / 1500 Other: Urine Color Straw Yellow Urine Appearance Clear Clear Stool Size Moderate Moderate Stool Characteristics Soft Soft Brown Brown Voiding Methods Toilet Toilet Laboratory Results WBC 6.68 k/cumm (4.4-10.8) 04/19/19 06:15 RBC 4.25 m/cumm (4.50-6.00) L 04/19/19 06:15 Hgb 15.0 g/dL (13.5-17.5) D 04/19/19 06:15 Hct 43.1 % (40.0-50.0) 04/19/19 06:15 MCV 101.4 fL (80-95) H 04/19/19 06:15 MCH 35.3 pg (27.0-33.0) H 04/19/19 06:15 MCHC 34.8 g/dL (32.0-36.0) 04/19/19 06:15 RDW 13.7 % (11.8-14.1) 04/19/19 06:15 Plt Count 135 x1000/uL (130-400) 04/19/19 06:15 MPV 11.7 fL (8.0-11.0) H 04/19/19 06:15 Immature Gran % 0.1 04/18/19 12:50 Neutrophils % 63.9 04/18/19 12:50 Lymphocytes % 23.4 04/18/19 12:50 Monocytes % 7.4 04/18/19 12:50 Eosinophils % 4.3 04/18/19 12:50 Basophils % 0.9 04/18/19 12:50 Absolute Neutrophils 5.12 k/cumm (1.2-6.7) 04/18/19 12:50 Absolute Lymphocytes 1.87 k/cumm (1.2-3.4) 04/18/19 12:50 Absolute Monocytes 0.59 k/cumm (0.11-0.7) 04/18/19 12:50 Absolute Eosinophils 0.34 k/cumm (0.0-0.7) 04/18/19 12:50 Absolute Basophils 0.07 k/cumm (0.0-0.2) 04/18/19 12:50 VBG pH 7.37 (7.32-7.43) 04/18/19 15:07 VBG pCO2 54 mm/Hg (34-47) H 04/18/19 15:07 VBG pO2 28 mm/Hg (28-44) 04/18/19 15:07 VBG HCO3 31 mmol/L (22-28) H 04/18/19 15:07 VBG Total CO2 27 mmol/L (22-29) 04/18/19 15:07 VBG O2 Saturation 47 % (70-80) L 04/18/19 15:07 VBG Base Excess 5.9 mmol/L (-3-3) H 04/18/19 15:07 Sodium 138 mmol/L (136-145) 04/19/19 06:15 Potassium 4.2 mmol/L (3.5-5.1) 04/19/19 06:15 Chloride 101 mmol/L (98-107) 04/19/19 06:15 Carbon Dioxide 26.3 mmol/L (21.0-32.0) 04/19/19 06:15 Anion Gap 10.7 mmol/L (3-11) 04/19/19 06:15 BUN 20 mg/dL (7-18) H 04/19/19 06:15 Creatinine 1.04 mg/dL (0.70-1.30) 04/19/19 06:15 Estimated GFR/1.73 m2 >= 60.00 (mL/min/1.73m2) 04/19/19 06:15 Glucose 347 mg/dL (70-100) H D 04/19/19 06:15 Hemoglobin A1c 8.5 % (4.5-6.2) H 04/18/19 12:50 Calcium 8.5 mg/dL (8.5-10.1) 04/19/19 06:15 Magnesium 1.6 mg/dL (1.8-2.4) L 04/19/19 06:15 Total Bilirubin 1.2 mg/dL (0.2-1.0) H 04/19/19 06:15 Conjugated Bilirubin 0.24 mg/dL (0.00-0.20) H 04/19/19 06:15 AST 65 U/L (15-37) H 04/19/19 06:15 ALT 85 U/L (16-63) H 04/19/19 06:15 Alkaline Phosphatase 127 U/L (46-116) H 04/19/19 06:15 Troponin I < 0.05 ng/mL (0.00-0.06) 04/18/19 12:50 Total Protein 7.1 g/dL (6.4-8.2) 04/19/19 06:15 Albumin 3.0 g/dL (3.4-5.0) L 04/19/19 06:15 Triglycerides 280 mg/dL (30-150) H 04/19/19 06:15 Total Cholesterol 124 mg/dL (50-200) 04/19/19 06:15 LDL Cholesterol, Calc 50 mg/dL 04/19/19 06:15 HDL Cholesterol 18 mg/dL (40-60) L 04/19/19 06:15 Vitamin B12 1936 pg/mL (193-986) H 04/19/19 06:15 Folate 13.1 ng/mL (8.6-20.0) 04/19/19 06:15 TSH 2.25 uIU/mL (0.36-3.74) 04/18/19 12:50 Free T4 1.02 ng/dL (0.76-1.46) 04/18/19 12:50 Urine Color Yellow (Yellow) 04/18/19 12:57 Urine Clarity Clear (Clear) 04/18/19 12:57 Urine pH 5.5 (5-8) 04/18/19 12:57 Ur Specific [place] 1.015 (1.005-1.025) 04/18/19 12:57 Urine Protein Negative mg/dL (Negative) 04/18/19 12:57 Urine Ketones Trace mg/dL (Negative) H 04/18/19 12:57 Urine Blood Negative (Negative) 04/18/19 12:57 Urine Nitrite Negative (Negative) 04/18/19 12:57 Urine Bilirubin Small (Negative) H 04/18/19 12:57 Urine Urobilinogen 0.2 EU/dL (Up TO 0.2) 04/18/19 12:57 Ur Leukocyte Esterase Negative (Negative) 04/18/19 12:57 Urine Glucose 500 mg/dL (Negative) H 04/18/19 12:57
--- NOTE | 2019-04-20 14:35 | PHARADMIT ---
Admission Pharmacy Clinical Review New diagnosis Diabetes with hyperglycemia, IAN Code Status Full Code Current Weight Wgt-105.9 kg Renally Cleared and Narrow Therapeutic Index Meds CrCl~ 90mL/min Meds-OK QTc Value / Action Taken BP Control, Fever BP-121/74 Tmax-36.8C Electrolytes reviewed Na-138 K+4.2 Mag-1.6 DVT Prophylaxis Lovenox, ASA Opiate Usage / Scheduled Bowel Regimen Ordered No Yes Plt/SCr for Heparin / Enoxaparin Plts-135 SCr-1.04 INR for Warfarin na H/H stable, WBC/Bands H&H-15.0/43.1 WBC-6.68 Antibiotic appropriateness none Cultures and Sensitivities none Surgical ABX d/c within 24 hr na DM control / Insulin Dosing BG-347 (was-530) AxE9i-1.5% On Aspart, Glargine Heart Failure (Check EF%) (MY's, B-Block, Diuretics) Norvasc, Lisinopril IV to PO Switch No Home Meds Reviewed Yes Home Meds Not Ordered [place]-3 Comments on CIWA protocol, not scoring AT THIS TIME Plan was for discharge home today. But, patient has no funds for medications needed for his new onset Diabetes
[2019-04-20 15:13] VITALS: BP 131/75; PULSE 71; RESP 18; TEMP 37.1; O2SAT 93
[2019-04-20] MEDS: Enoxaparin 40 MG/0.4 ML SYR SC (17:00)
[2019-04-20 20:05] VITALS: BP 147/91; PULSE 86; RESP 18; TEMP 37; O2SAT 97
[2019-04-20] MEDS: Insulin Glargine 300 UNITS/3 ML PEN 20 UNITS SC (21:35)
[2019-04-20 23:46] VITALS: BP 138/74; PULSE 82; RESP 18; TEMP 36.6; O2SAT 95
[2019-04-21 04:11] VITALS: BP 148/86; PULSE 79; RESP 18; TEMP 35.9; O2SAT 98
[2019-04-21] MEDS: Nystatin 500000 UNITS/5 ML SUSP 5ML CUP PO ×3 (05:45→13:26)
[2019-04-21 07:20] VITALS: BP 155/89; PULSE 78; RESP 18; TEMP 35.6; O2SAT 92
[2019-04-21 07:38] VITALS: BP 155/89; PULSE 78; RESP 18; TEMP 36.4; O2SAT 96
[2019-04-21] MEDS: Insulin Aspart 300 UNITS/3 ML PEN SC ×2 (07:47→12:14)
[2019-04-21] MEDS: Aspirin E.C. 81 MG TABEC PO (07:48)
[2019-04-21] MEDS: Thiamine 100 MG TAB PO (07:48)
[2019-04-21] MEDS: amLODIPine 5 MG TAB PO (07:48)
[2019-04-21] MEDS: Multivitamin TAB 1 TAB PO (07:48)
[2019-04-21] MEDS: Lisinopril 10 MG TAB 30 MG PO (07:49)
[2019-04-21] MEDS: Folic Acid 1 MG TAB PO (07:49)
--- NOTE | 2019-04-21 09:45 | PDOC.CMDIS ---
LACE Index Scoring Tool - Questions: Length of Stay (in days): 3 Acuity (Admit via E.D.?): Yes Comorbidities: Diabetes w/o Complication E.D. Visits: 1 - Answers: Total Score: 8 Risk of Readmission: Low Risk Care Management Discharge Reason for Hospitalization: Newly diagnosed Diabetes Discharge Plan: Epifanio will return home when ready per MD. He will follow up with Jomar Turner at [facility] regarding insurance and prescription coverage for new diabetic supplies. CM spoke with Jomar who reported Guy may be eligible for VPHARM coverage per his reported income. Epifanio saw his PCP, Dr. Baum who arranged for his admission due to new insulin requirement. CM notified CCC: Dona Cornejo at [facility] of request for ongoing support. Epifanio will follow up with his PCP, thread laster and plan of care as prescribed. He will retrieve a new glucometer and strips from [facility] and return home with his current insulin pen which should last approx 12 days, per provider. Depending on insurance coverage attained with Jomar at [facility], he will have new prescriptions for insulin through his PCP who he is following up with on Sunday. He will transport himself via private vehicle. Patient/Family Education Needs: Review of discharge instructions, discuss Ask Me Three. Services Needed at Discharge: DME Agency (Diabetic supplies)
--- NOTE | 2019-04-21 09:54 | W.INDIABCONS ---
Date of service: 04/21/19 Time of Service: 09:56 Diabetes Inpatient Consult DESCRIPTION/ASSESSMENT: Appreciate diabetes consult for Mr. Burt who is hospitalized with hyperglycemia. A1c 8.5 up from 6.6 in December. BMI 61 Sudden onset of thirst and fatigue resulting in this admission. Blood sugars 504 now down to 217 last evening receiving 20u Glargine and moderate insulin correction. Epifanio states he was eating 1 meal a day of meat and starch with candy bars available. He lost 30 pounds since October controlling portions. He also drinks 60 ounces milk daily. He only eats a little lettuce occasionally. All other vegetables are not an option for him. He has back pain limiting his movement to walking short distances. He is doing house renovations but states they take him twice as long as anyone else to complete. States he sleeps poorly up to 2 hours at night and power naps at other times. Epifanio has been testing his blood sugar here and has administered insulin stating he feels confident about this. INTERVENTION: Answered Risa questions and offered review of diabetes food guide as a start for penitentiary meal planning. Reviewed blood sugar monitoring documentation. He does not want to test blood sugars more than once a day. Suggested one day he test at times other than fasting. Offered blood sugar goal range; he insists on hearing an upper level of blood sugar that is unsafe. Suggested 300 but he states he is already there. Encouraged him to be more aware of how well hydrated he is while hyperglycemic as a way to prevent DKA or non-ketotic hyperosmolar hyperglycemic situation. Reviewed extensively hypoglycemia treatment protocol. Encouraged physical activity as tolerated. He has a treadmill he can go at his own pace and distance suggesting up to 20 minutes a day initially. PLAN: Will check back with him this afternoon or prior to discharge to answer questions. Time Spent in Nutritional Counseling and Treatment: 25 minutes face to face
--- NOTE | 2019-04-21 12:51 | W.PM.DS.N ---
Date of service: 04/21/19 Time of Service: 12:58 DS: Diagnosis Discharge Diagnosis (1) Newly diagnosed diabetes: Status: Acute (2) Essential hypertension: Status: Chronic (3) Alcohol abuse: Status: Chronic (4) Transaminitis: Status: Acute (5) DVT prophylaxis: Status: Acute (6) IAN (acute kidney injury): Status: Acute (7) Discharge planning issues: Status: Acute Discharge Plan Disposition Patient Disposition: HOME Condition: Improving Discharge Details Chief Complaint: Diabetes Reason For Visit: NEW DIAGNOSIS OF DIABETES WITH HYPERGLYCEMIA ,IAN Admit Date/Time: 04/18/19 14:55 Admit Provider: Sariah Padgett Attending Provider: Sariah Padgett Primary Care Provider: Blair Baum ED Provider: Lashaun Lezama [facility] Course Hospital Course: Guy Burt is a 53 year old male with a past medical history significant for CAD, HTN, hyperlipidemia and possible old NH, who was admitted to Med/Surg for hyperglycemia after being seen in his PCP office. At the time of his presentation, he was noted to have a blood glucose of 530. He also reported increased thirst, urination and fatigue as well as recent weight loss. His admission labs were also notable for IAN, therefore, he was initiated on lantus with short acting insulin per sliding scale with meals and oral therapy was held. His lantus was adjusted and at the time of discharge, his blood glucose is in the low 200's. He will be instructed to increase to 22 units of lantus at HS and to monitor his blood glucose closely. He was seen by Rekha Goode, natural resources extension educator who gave him information on diet and management of blood glucose. She also provided information on where to get a glucose monitor and strips for an affordable esqueda, at this point he does not have prescription drug coverage. He has been connected with community resources to assist with obtaining precription coverage. He was previously on lisinopril and amlodipine, this will be continued. He was also started on aspirin. His triglycerides were elevated at 280, total cholesterol 124, HDL 18, LDL 50. He was started on omega-3 fatty acids. His magnesium was low at 1.6, he will be instructed to take oral magnesium with follow up labs next week. His acute kidney injury resolved, his PCP may consider oral antidiabetic agents as well. He will have follow up BMP next week. He is scheduled to follow up with his PCP on 04/23/19. He is instructed to record his blood glucose readings and take them to his PCP appointment. Home Meds and New Rx's Prescriptions: New aspirin 81 mg Tablet,Delayed Release (Dr/Ec) 81 mg PO DAILY Qty: 30 RF: 0 omega-3 fatty acids 1,000 mg capsule 1,000 mg PO TID Qty: 90 RF: 0 Lantus Solostar U-100 Insulin 100 unit/mL (3 mL) Insulin Pen 22 units subcut HS Qty: 0 RF: 0 Continued lisinopril 30 mg tablet 30 mg PO DAILY Qty: 90 RF: 3 amlodipine 5 mg tablet 5 mg PO DAILY Qty: 90 RF: 4 Discharge Instructions Instructions: How to Check Your Blood Sugar (GEN), Diabetic Ketoacidosis (GEN), Foot Care for People with Diabetes (GEN), Diabetic Hypoglycemia (GEN), Diabetes Mellitus Type 2 in Adults (GEN), Meal Planning with Diabetes Exchanges (GEN), Managing Diabetes During Sick Days (GEN), DASH Eating Plan (DC), DASH Eating Plan (GEN), Hemoglobin A1c (GEN) Additional Instructions: Take lantus at night. Check your blood sugar daily in the morning. Bring your numbers to your doctor on Sunday. Follow a modified diet plan using both the DASH diet and [place] [employer] Plan. If you have increased thirst or have dizziness, diaphoresis, lethargy not feeling well. CHECK your blood sugar. Blood sugar 500 or greater go to the emergency department. If you have a blood sugar under 70 drink a glass of milk, eat some crackers and recheck in 30 mins. Target blood sugar is 85-140. Seek Medical Treatment if you have Chest pain, Shortness of Breath, N/V/D. You can get your diabetic supplies at [facility] including a ReliOn meter and strips. You may take the Lantus pen that you have been using here home with you to use for now. Follow up with your PCP as scheduled. Follow up with [facility] for help with insurance coverage for prescriptions. The chronic medical care evaluation specialist at [facility] will also help you, her name is Dona. Stand Alone Forms: Nursing Discharge Form Referrals: Blair Baum, [Primary Care Provider] - 04/23/19 1:20 pm (follow up with PCP on Sunday) Activity:: Activity as Tolerated Equipment/Supplies:: Blood Glucose Monitor Diet:: Carb Counting Discharge Orders Discharge Orders: Discharge Order (Routine); Ordered 04/21/19 Ordered By: Nadia Yeager Other Ambulatory Orders: Basic Metabolic Panel (Routine) Timeframe: 1 Week Facility: [facility] - Location: Laboratory Outpatient Ordered By: Nadia Yeager Magnesium (Routine) Timeframe: 1 Week Facility: [facility] - Location: Laboratory Outpatient Ordered By: Nadia Yeager DS: Summary Status at Discharge Functional status at discharge: independent ambulation Overall status at discharge: patient is progressing back to baseline Mental Status: mental status grossly normal Speech and Movement: speech and movement normal Mood: congruent mood Affect: normal affect Exam Narrative Exam Narrative: General: pleasant, talkative middle-aged male, sitting up in bed in NAD. Alert and oriented. HEENT: Atraumatic, normocephalic, EOMI, mucous membranes moist, edentulous. Neck: supple, no JVD. Cardiovascular: heart has regular rate and rhythm, no murmur appreciated. Lungs: respirations even and unlabored, lung sounds clear bilaterally. Gastrointestinal: normoactive bowel sounds, abdomen soft, round, nontender on palpation Extremities: no clubbing, cyanosis or edema. Pedal pulses palpable bilaterally. Psych Mental Status: mental status grossly normal Speech and Movement: speech and movement normal Mood: congruent mood Affect: normal affect DS: Data Vitals/I&O Vitals and I&O: Vital Signs Temperature 36.4 C L 04/21/19 07:38 Temperature Source Tympanic 04/21/19 07:38 Pulse 78 04/21/19 07:38 Pulse Rhythm Regular 04/21/19 09:48 Pulse 94 H 04/18/19 15:00 Respiratory Rate 18 04/21/19 07:38 Respiratory Effort Non-Labored 04/21/19 09:48 Respiratory Depth Normal 04/21/19 09:48 Respiratory Pattern Normal 04/21/19 09:48 Blood Pressure 155/89 H 04/21/19 07:38 Blood Pressure Position Sitting 04/18/19 12:28 Pulse Oximetry 96 04/21/19 07:38 Oxygen Delivery Method Room Air 04/21/19 07:38 Oxygen Flow Rate 0 04/21/19 07:38 Pain Level 0 04/21/19 07:38 Comment 04/21/19 07:20 Intake & Output 04/20/19 04/21/19 04/21/19 23:59 11:59 23:59 Intake Total 1780 / 3030 1280 / 1280 Output Total 1400 / 2900 200 / 200 Balance 380 / 130 1080 / 1080 Weight 104 kg Intake: Oral 1780 / 3030 1280 / 1280 Output: Urine 1400 / 2900 200 / 200 Other: Urine Color Yellow Yellow Urine Appearance Clear Clear Stool Size Moderate Stool Characteristics Formed Voiding Methods Toilet Toilet Data Completed and Pending Labs on day of discharge: Labs from last 24 hours 04/20/19 04/20/19 15:31 15:30 WBC Cancelled RBC Cancelled Hgb Cancelled Hct Cancelled MCV Cancelled MCH Cancelled MCHC Cancelled RDW Cancelled Plt Count Cancelled MPV Cancelled Immature Gran % Cancelled Neutrophils % Cancelled Band Neutrophils % Cancelled Lymphocytes % Cancelled Atypical Lymphs % Cancelled Monocytes % Cancelled Eosinophils % Cancelled Basophils % Cancelled Metamyelocytes % Cancelled Myelocytes % Cancelled Promyelocytes % Cancelled Absolute Neutrophils Cancelled Absolute Lymphocytes Cancelled Absolute Monocytes Cancelled Absolute Eosinophils Cancelled Absolute Basophils Cancelled Nucleated RBCs Cancelled Differential Comment Cancelled Other Cell Type Cancelled RBC Morphology Cancelled Polychromasia Cancelled Hypochromasia Cancelled Poikilocytosis Cancelled Basophilic Stippling Cancelled Anisocytosis Cancelled Microcytosis Cancelled Macrocytosis Cancelled Spherocytes Cancelled Target Cells Cancelled Tear Drop Cells Cancelled Ovalocytes Cancelled Stomatocytes Cancelled [place] Bodies Cancelled [place] Cells Cancelled Acanthocytes (Spur) Cancelled Schistocytes Cancelled Sodium Cancelled Potassium Cancelled Chloride Cancelled Carbon Dioxide Cancelled Anion Gap Cancelled BUN Cancelled Creatinine Cancelled Estimated GFR/1.73 m2 Cancelled Glucose Cancelled Calcium Cancelled PFS Medical History CAD (coronary artery disease) (Chronic) CVA (cerebral vascular accident) (Chronic) Question of mild CVA, per patient Essential hypertension (Chronic 05/26/13) Hyperlipidemia (Chronic) Insomnia (Acute) Low back pain (Chronic) right leg weakness; disability Obesity (BMI 30-39.9) (Chronic) Psoriasis (Chronic) Surgical History History of back surgery (Acute) Family History Mother Neoplasm Father Neoplasm BONE Niece Diabetes Social History Smoking/Tobacco Use Status: Former Tobacco Use Pack-years: 35 Alcohol Intake: current Alcohol Intake frequency: 3 or more drinks per day Details: 3-4 beers 3-4 times per week Substance use type: does not use Do you feel safe at home: Yes Do you feel safe in your relationship?: Yes
== END 2019-04-21 14:58 | disposition home or self-care (01) | DRG 638 ==
LOC: ER 15:15 → MS 16:06
PROVIDERS: Admitting Provider Internal Medicine; Emergency Provider Physician Assistant; PCP Emergency Medicine; Visit Provider Internal Medicine
DX: N17.9 Acute kidney failure, unspecified; E86.0 Dehydration; Z71.3 Dietary counseling and surveillance; F10.10 Alcohol abuse, uncomplicated; E83.42 Hypomagnesemia; E83.52 Hypercalcemia; D75.89 Other specified diseases of blood and blood-forming organs; R74.0 Nonspecific elevation of levels of transaminase and lactic acid dehydrogenase [LDH]; I10 Essential (primary) hypertension; I25.10 Atherosclerotic heart disease of native coronary artery without angina pectoris; E78.5 Hyperlipidemia, unspecified; E11.65 Type 2 diabetes mellitus with hyperglycemia
CPT/HCPCS: 36415; 80048; 80053; 80061; 80076; 82805; 85027; 87040; 97161; 99220; 99233; 99239; J1650; 81003; 82607; 82746; 83036; 83735; 84439; 84443; 84484; 85025; 99223; 99226; G0378; J3475

== ENCOUNTER 2019-07-21 09:17 | Outpatient (CLI) | payer MEDICARE, SELFPAY ==
[2019-07-21 12:48] LABS: ALT 92 U/L (16-63); AST 78 U/L (15-37); Albumin 3.7 g/dL (3.4-5.0); Alkaline Phosphatase 211 U/L (46-116); Anion Gap 5.4 mmol/L (3-11); BUN 15 mg/dL (7-18); Bilirubin, Direct 0.19 mg/dL (0.00-0.20); Bilirubin, Total 0.7 mg/dL (0.2-1.0); CO2 32.6 mmol/L (21.0-32.0); CREATININE 0.79 mg/dL (0.70-1.30); Calcium 9.9 mg/dL (8.5-10.1); Chloride 103 mmol/L (98-107); Glucose 333 mg/dL (74-106); Potassium 4.9 mmol/L (3.5-5.1); Sodium 141 mmol/L (136-145); Total Protein 7.1 g/dL (6.4-8.2)
[2019-07-21 13:02] LABS: Hemoglobin A1C 7.2 % (3.8-5.6)
[2019-07-22 09:11] LABS: Hepatitis C Ab w Rflx HCV PCR Negative (Negative)
== END 2019-07-21 09:37 ==
PROVIDERS: PCP Emergency Medicine; Visit Provider Emergency Medicine
DX: E11.9 Type 2 diabetes mellitus without complications (principal); I10 Essential (primary) hypertension; R94.5 Abnormal results of liver function studies; Z11.59 Encounter for screening for other viral diseases
CPT/HCPCS: 36415; 80048; 80076; 86803; 83036

== ENCOUNTER 2019-07-25 01:50 | Outpatient (CLI) | payer MEDICARE, SELFPAY ==
--- NOTE | 2019-07-25 07:05 | DI.US_ITS ---
EXAM: US ABDOMEN CLINICAL HISTORY: abnormal LFT,EPIGASTRIC PAIN,R10.13,R94.5, DIABETIC TECHNIQUE: Ultrasound performed using standard protocol. COMPARISON: CHEST 2 VIEWS PA,LAT from 08/31/2015 THORACIC SPINE from 08/31/2015 FINDINGS: The liver shows mildly increased echogenicity consistent with mild hepatic steatosis. The liver is m ildly enlarged at 18 cm in length. There are no focal liver lesions visible. No biliary dilatation is seen. The gallbladder has a normal appearance. No stones or wall thickening is seen. The pancre as is mildly enlarged at 13.6 cm. Splenic calcifications are present, consistent with old healed gra nulomatous disease. The kidneys, aorta and visualized portions of the pancreas are unremarkable. Th ere is no ascites. IMPRESSION: Mild hepatosplenomegaly. Mild hepatic steatosis.
[2019-07-25 08:45] LABS: ALT 100 U/L (16-63); AST 103 U/L (15-37); Albumin 3.9 g/dL (3.4-5.0); Alkaline Phosphatase 138 U/L (46-116); Bilirubin, Direct 0.29 mg/dL (0.00-0.20); Bilirubin, Total 1.3 mg/dL (0.2-1.0); C-Reactive Protein 0.22 mg/dL (0.0-0.3); Total Protein 7.5 g/dL (6.4-8.2)
[2019-07-25 08:51] LABS: GGT 70 U/L (15-85)
[2019-07-28 10:52] LABS: Hepatitis A Antibody IgM Negative (Negative); Hepatitis B Core Antibody Negative (Negative); Hepatitis B surface Ag Negative (Negative); Hepatitis C Ab w Rflx HCV PCR Negative (Negative)
== END 2019-07-25 02:10 ==
PROVIDERS: PCP Emergency Medicine; Visit Provider Emergency Medicine
DX: R16.2 Hepatomegaly with splenomegaly, not elsewhere classified (principal); K76.0 Fatty (change of) liver, not elsewhere classified; R10.13 Epigastric pain; E78.5 Hyperlipidemia, unspecified; R94.5 Abnormal results of liver function studies; K86.89 Other specified diseases of pancreas
CPT/HCPCS: 36415; 80076; 86704; 86709; 86803; 87340; 76700; 82977; 86140